=== PATIENT | female | born 2000 ===

== ENCOUNTER 2025-06-23 09:11 | Outpatient (AMB) | payer MEDICAID, SELFPAY ==
--- NOTE | 2025-06-23 09:23 | OBCLNT_ITS ---
Vital Signs 06/23/25 09:45 Height 1.52 m Height Method Stated Weight 74.956 kg Weight Measurement Method Standing Scale BMI 32.3 BP 117/77 Blood Pressure Source Automatic Cuff Blood Pressure Location Left Upper Arm Position Sitting Respiration 14 Pulse 61 Pulse Source Monitor Temp 95 F L Temp Source Oral Pulse Oximetry (%) 98 Oxygen Delivery Method Room Air Allergies/Home Meds Allergies & Medications Allergies No Known Allergies Allergy (Verified 06/23/25 09:46) Medication Reconciliation vitamins-iron fumarate 66 mg iron-folic acid 1 mg tablet tab PO 06/23/25 [History Confirmed 06/23/25] Intake Visit Data Collection New Patient or Established: New Patient (never been to [facility]) Reason for Visit:: INITIAL CARE Seen by Clinical Staff ONLY (RN/MA): No Insurance Policy Issue Clerk Required: No Do You Feel Safe at Home: Yes Authorities Contacted: N/A PCP or OBGYN visit in last 3 months: Yes Hx Now: Yes Are you currently on any form of Control: No Last menstrual period: 11/10/24 Pain Present Currently: No Pain Scale Used: Farmer-Garcia/Numerical Pain scale:: 0 Smoking Status Smoking Status: Never smoker Immunizations Flu Vaccine in the Last 12 Months: Yes Flu Vaccine Exclusion Criteria: Already Received Questionnaires Covid-19 Vaccine Questionnaire Has patient been vacinated for Covid-19 Have you been vacinated for Covid-19: No PHQ-9 PHQ-2 Over the last 2 weeks, how often have you been bothered by any of the following problems? 1. Little interest or pleasure in doing things: not at all 2. Feeling down, depressed, or hopeless: not at all Total score: 0 PHQ-9 3. Trouble falling or staying asleep, or sleeping too much: Not at all 4. Feeling tired or having little energy: Not at all 5. Poor appetite or overeating: Not at all 6. Feeling bad about yourself - or that you are a failure or have let yourself or your family down: Not at all 7. Trouble concentrating on things, such as reading the newspaper or watching television: Not at all 8. Moving or speaking so slowly that other people could have noticed? - Or the opposite - being so fidgety or restless that you have been moving around a lot more than usual: not at all 9. Thoughts that you would be better off or of hurting yourself in some way: Not at all Total score: 0 Source: Developed by Drs. Nabeel Mehta, Christie Lopez, Oumar Malloy and colleagues, with an educational thu from [employer]. Depression screen completed yes Social History Living Situation History Marital Status: Life Partner Lives With: Family Housing: Apartment Tobacco History Smoking Status: Never smoker Second Hand Smoke Exposure: No Alcohol History Alcohol Intake: Never Domestic Abuse History Do You Feel Safe at Home: Yes History of Present Illness HPI Narrative 25-year-old 2 para 1 for OBI. Last period November 10, 2024. Estimated due date August 17, 2025. Reports good movement. Denies leaking, bleeding, contractions. Patient denies any surgeries including C-sections. She had her first baby 2018 at 40 weeks. In [place]. Denies social habits. And denies existence of chronic illnesses. She has not had any problems with . OB Initial Visit OB Flowsheet OB Flowsheet Initial Weight: Not Recorded Date -?-?-?-?-?-?--?-?-?-?-?-?- EGA Weight BP Alb Glu CTX Pres Fundal ht FHR Mov Dilation Station Effacement Hx Notes Visit Note 06/23/25 -?-?-?-?-?-?-?-?-?-?-?-?- 32w 1d 74.956 kg 117/77 absent transverse 32 1 45 active 25-year-old 2 para 1 for OBI. Patient's last. 03/13/2025. This gives estimated due date August 17, 2025. Patient has transportation problems so she will be scheduled at [facility] for ultrasound. Reports movement. Denies leaking, bleeding, contractions. OBI toda y. Schedule OB panel with NIPT, carrier screens and third trimester labs. Schedule ultrasound at [facility]. Discussed labor precautions. Continue prenatals. Return in 2 weeks OB check Menstrual History Menstrual reliability: approximate (month known) Flow: normal Menstrual regularity: regular Monthly: Yes Age at menarche: 12 On control pills at conception: No Associated symptoms (LMP): Denies amenorrhea, nausea, vomiting, fatigue, breast tenderness, urinary frequency, irritability, bloating or other OB History : 2 Para: 1 # of Living Children: 1 Delivery History 1st : Child's name: LESTER date: 01/06/18 sex: male Gestational age at delivery (weeks): 40 Delivery type: vaginal Delivery complications: NONE History of depression before or after : No Infection History & Risk Evaluation History of STDs: none Genetic Screening & History Genetic Screening/Teratology Counseling - Includes patient, baby's father, or anyone in either family with: 1. Patient's age 35 years or older as of estimated date of delivery: No 2. Thalassemia (Japanese, Qatari, Mediterranean, or Background); MCV less than 80: No 3. Neural Tube Defect (Meningomyelocele, Spina Bifida, or Anencephaly): No 4. Congenital Heart Defect: No 5. Down Syndrome: No 6. Zohaib-Sachs (Ashkenazi Worship, Cajun, Turkish [place]): No 7. Sherif Disease (Ashkenazi Worship): No 8. Familial Dysautonomia (Ashkenazi Worship): No 9. Sickle Cell Disease or Trait (): No 10. Hemophilia or other blood disorders: No 11. Muscular Dystrophy: No 12. Cystic Fibrosis: No 13. Josesito's Chorea: No 14. Mental Retardation/Autism: No 15. Other inherited genetic or chromosomal disorder: No 16. Maternal Metabolic Disorder (EG,TYPE 1 Diabetes, PKU): No 17. Patient or baby's father had a child with defects not listed above: No 18. Recurrent loss or a stillbirth: No 19. Medications (including supplements, vitamins, herbs or otc drugs)/illicit/recreational drugs/alcohol since last menstrual period: No 20. Any other: No Infection History 1. Live with someone with TB or exposed to TB: No 3. Hepatitis B,C: No Other (see comments) Source: [employer] Review of Systems Review of Systems Systems Reviewed: All systems reviewed, normal except as documented Constitutional Constitutional: Denies fatigue Gastrointestinal Gastrointestinal: Denies bloating, Denies nausea and Denies vomiting Genitourinary Genitourinary: Denies amenorrhea and Denies urinary frequency Psychiatric Psychiatric: Denies irritability Endocrine Endocrine: Denies fatigue Exam General Limitations: no limitations General Appearance: alert, in no apparent distress, comfortable, cooperative, healthy appearing, well developed and well groomed Head Head exam: atraumatic, normocephalic and normal inspection ENT ENT exam: Present normal exam, normal oropharynx and mucous membranes moist Neck Neck exam: Present normal inspection, full ROM and trachea midline Chest Chest inspection: Present normal inspection and symmetric chest wall rise Resp Respiratory exam: Present normal lung sounds bilaterally Card Cardiovascular exam: Present regular rate, normal rhythm and normal heart sounds Abdominal Abdominal exam: Present soft and normal bowel sounds Psych Psychiatric exam: Present normal affect and normal mood Office Procedures OBC Clinic LOC & Office Proc's Nursing/Assessment Patient Status: Initial/New Patient OB Clinic Nursing Assessment: Medication Reconciliation, Update PMH in EMR and Vital Signs OB Clinic Coordination of Care: Complex Care and Chronic Disease 1-5, Consent,records obtained, informed consent, Education Simp Pt/Fam, 1 Ins Authorization, Lab and Imaging orders, Results/Orders obtained and Staff clarify orders Special Needs: Heart tones New Patient Charge New Patient Point Assignment: [id number] New Patient Point Charge: CASHIER HOST/HOSTESS Level 4 ([id number]) Assessment & Plan Diagnosis / Problem List (1) Encounter for supervision of high risk in third trimester, antepartum: Status: Acute Plan OB panel today. With NIPT, carrier screens and third trimester labs. Schedule ultrasound at [facility] for dating and anatomy. Discussed labor precautions. Continue prenatals. Discussed danger signs and symptoms. And kick count. And return in 2 weeks OB check Additional Plan Follow Up: 2 Weeks (obc)
[2025-06-23 09:45] VITALS: BP 117/77; PULSE 61; RESP 14; TEMP 35; O2SAT 98; BMI 32.3
== END 2025-06-23 10:02 | disposition home or self-care (01) ==
LOC: HODSOBC 09:11
PROVIDERS: Supervising Provider Advanced Practice Midwife; Visit Provider Advanced Practice Midwife
DX: O09.93 Supervision of high risk pregnancy, unspecified, third trimester (principal); Z3A.32 32 weeks gestation of pregnancy; Z59.82 Transportation insecurity
CPT/HCPCS: 99204; G0463